=== PATIENT | male | born 1965 | race Caucasian/White ===

== ENCOUNTER 2021-10-03 05:57 | Outpatient (CLI) | payer BC ==
[~2021-10-03] VITALS: Ht 172.7 cm; Wt 104.3 kg
== END 2021-10-03 14:53 | disposition home or self-care (01) ==
LOC: PREOP 05:57
PROVIDERS: ATTEND Surgery
DX: Z01.818 Encounter for other preprocedural examination (principal)

== ENCOUNTER 2021-10-08 10:42 | Day surgery (SDC) | payer BC ==
[~2021-10-08] VITALS: Ht 173 cm; Wt 104.0 kg
[2021-10-08] MEDS ORDERED: LACTATED RINGERS 1,000 ML IV ONE (10:50)
[2021-10-08] MEDS ORDERED: LACTATED RINGERS 1,000 ML IV STA (11:09)
[2021-10-08] MEDS ORDERED: HURRICAINE EXT TUBE (BENZOCAINE) XX PRN (11:15)
--- NOTE | 2021-10-08 11:24 | Progress Note-Pre Operative ---
Pre-Operative Progress Note H&P Reviewed The H&P was reviewed, patient examined and no changes noted. Time Seen by Provider: 11:21 Date H&P Reviewed: Oct 08, 2021 Time H&P Reviewed: 11:21 Pre-Operative Diagnosis: Gastritis, Screening colonoscopy ANUEL TUCKER DO Oct 08, 2021 11:24
[2021-10-08 11:37] VITALS: BP 115/75
[2021-10-08] MEDS ORDERED: FURO40TA4 PO (12:02)
[2021-10-08] MEDS ORDERED: SIMV40TA25 PO (12:02)
[2021-10-08] MEDS ORDERED: LISI20TA26 PO (12:02)
[2021-10-08] MEDS ORDERED: METF-397 PO (12:02)
[2021-10-08] MEDS ORDERED: GLIM2TAB4 PO (12:02)
[2021-10-08] MEDS ORDERED: SEMA7TAB PO (12:02)
[2021-10-08] MEDS ORDERED: OMEP40CA6 PO (12:02)
[2021-10-08] MEDS ORDERED: PROPOFOL INJECTION 50 ML IV ONE ×2 (12:37→13:03)
[2021-10-08] MEDS ORDERED: MIDAZOLAM 2 MG/2 ML (VERSED) VIAL ONE (12:37)
[2021-10-08 13:10] VITALS: BP 94/51
[2021-10-08 13:15] VITALS: BP 99/57
[2021-10-08 13:20] VITALS: BP 103/60
--- NOTE | 2021-10-08 13:37 | Progress Note-Post Operative ---
Post-Operative Progess Note Surgeon (s)/Manager Rehab (s) Surgeon ANUEL TUCKER DO Manager Rehab: Lars Bedoya, MSIII Pre-Operative Diagnosis Gastritis, Screening colonoscopy Post-Operative Diagnosis Gastritis Esophagitis Very small Hiatal hernia Int hemorrhoids poor prep Procedure & Operative Findings Date of Procedure 10/08/21 Procedure Performed/Findings EGD with biopsy Colonoscopy PROCEDURE NOTE: After informed consent was obtained, the patient was brought to the endoscopy suite, placed in bed in left lateral decubitus position. He was administered IV sedation by the FLOUR BLENDER who then monitored vitals the entire time, heart rate, blood pressure and pulse ox and the scope was inserted down the mouth through the esophagus into the stomach. On the way down, noted some mild esophagitis, took a picture, pushed into the stomach, pushed past the antrum into the duodenum. Duodenum looked good. Pulled back and did a biopsy of antrum, then retroflexed the scope, saw very small hiatal hernia, took a picture of this and then pulled the scope into the GE junction, took another picture of the hiatal hernia and then did a biopsy of the GE junction. Pushed the scope back into the stomach, suctioned all the air out of the stomach. At this point pulled the scope up the esophagus and out the mouth. Switched camera, switched gloves, went down below, started the colonoscopy. Pushed all the way into about 140 cm to get all the way to cecum, took a picture of the appendiceal orifice, noted the ileocecal valve and then slowly withdrew the scope, insufflating to look circumferentially at the senior starting in the cecum, up the ascending colon to the hepatic flexure, then down the transverse colon, splenic flexure, into the descending colon, down into the sigmoid and finally into the rectum, retroflexed in the rectal vault, saw some minimal internal hemorrhoids and took a picture of this. Unfortunately, throughout the colon he had retained fecal liquid and large pieces of vegetable matter. Therefore, unable to visualize everything and will need this repeated in one year. Probably will need a 2 day prep. The patient tolerated the procedure and he recovered in the endoscopy suite. Anesthesia Type IV sedation by FLOUR BLENDER Estimated Blood Loss Estimated blood loss (mL): scant Specimens/Packing Specimens Removed antral bx body of stomach bx GE jxn bx x 2 ANUEL TUCKER DO Oct 08, 2021 13:37
--- NOTE | 2021-10-08 13:38 | Endoscopy Discharge Instruct ---
Endo Procedure/Findings Findings 1.: Hiatal Hernia, Gastritis 2.: Other Findings (Esophagitis) 3.: Internal Hemorrhoids 4.: Other Findings (poor prep) Discharge Instructions - Activity: You might feel a little sleepy until tomorrow. This is due to the medicine you received to relax you. Until tomorrow, you should: NOT drive a car, operate machinery or power tools. NOT drink any alcoholic beverages. NOT make any important decisions or sign importortant papers. Do not return to work until tomorrow, unless otherwise instructed. Resume previous activities tomorrow. Diet: Start by taking liquids. If you tolerate liquids, advance to solid food. 1.: EGD in 3 years 2.: Colonoscopy in 1 year Notify Physician - If you experience excessive bleeding, unusual abdominal pain, fever, or chest pain, contact your doctor immediately. ANUEL TUCKER DO Oct 08, 2021 13:38
[2021-10-08 13:40] VITALS: BP 114/71
[2021-10-08 13:50] VITALS: BP 114/71
--- NOTE | 2021-10-08 14:42 | Anesthesia-General Post-Op ---
MAC Patient Condition Mental Status/LOC: Same as Preop Cardiovascular: Satisfactory Nausea/Vomiting: Absent Respiratory: Satisfactory Pain: Controlled Complications: Absent Post Op Complications Complications None Follow Up Care/Instructions Patient Instructions None needed. Anesthesiology Discharge Order Discharge Order Patient is doing well, no complaints, stable vital signs, no apparent adverse anesthesia problems. No complications reported per nursing. HAIR BAE CRNA Oct 08, 2021 14:42
== END 2021-10-08 13:50 | disposition home or self-care (01) ==
LOC: ENDO 10:42
PROVIDERS: ATTEND Surgery
DX: Z12.11 Encounter for screening for malignant neoplasm of colon (principal); K20.90 Esophagitis, unspecified without bleeding; K44.9 Diaphragmatic hernia without obstruction or gangrene; K64.8 Other hemorrhoids; K29.50 Unspecified chronic gastritis without bleeding; I10 Essential (primary) hypertension; G47.33 Obstructive sleep apnea (adult) (pediatric); K21.9 Gastro-esophageal reflux disease without esophagitis; E11.9 Type 2 diabetes mellitus without complications; Z79.84 Long term (current) use of oral hypoglycemic drugs; Z79.899 Other long term (current) drug therapy; Z79.02 Long term (current) use of antithrombotics/antiplatelets; Z87.891 Personal history of nicotine dependence; Z99.89 Dependence on other enabling machines and devices; Z83.3 Family history of diabetes mellitus; Z80.7 Family history of other malignant neoplasms of lymphoid, hematopoietic and related tissues
CPT/HCPCS: 82947; 88305